=== PATIENT | female | born 1985 | race African-American/Black ===

== ENCOUNTER 2019-01-03 00:13 | Emergency (ER) | payer OTHER ==
[2019-01-03 01:40] VITALS: BP 121/75; PULSE 65; RESP 18; TEMP 98.5
[2019-01-03 01:58] LABS: Appearance,Urine Clear (Clear); Bacteria,Urine Rare /hpf; Bilirubin,Urine Negative (Negative); Blood,Urine Moderate (Negative); Color,Urine Yellow; Glucose,Urine (UA) Negative (Negative); Ketones,Urine Negative (Negative); Leukocyte Esterase,Urine Trace (Negative); Mucus,Urine Many /hpf; Nitrite,Urine Negative (Negative); PH, Urine 6.5 (5.0-8.0); Protein,Urine Trace (Negative); RBC,Urine >182 /hpf (0-5); Specific Gravity,Urine 1.031 (1.001-1.035)
--- NOTE | 2019-01-03 02:00 | ED ---
General Adult HPI - General Chief complaint: Urogenital Stated complaint: Female Time Seen by Provider: 01/03/19 00:29 Source: patient, RN notes reviewed, old records reviewed Mode of arrival: ambulatory Limitations: no limitations - History of Present Illness Initial comments: 33-year-old female patient past medical history of bariatric surgery, gastric sleeve, fibroidectomy presents to ED with complaint of 7 years cyclic pelvic pain. Patient reports that she has prominent intercourse, patient reports that she has pelvic pain before and after her menses. Patient reports that she has been followed closely with [facility] this problem including having a fibroidectomy. Patient reports she hasn't exploratory laparotomy for endometriosis scheduled in approximately 2 weeks. Patient states that she believes that her pain as involving her cervix. Patient was seen at [facility] prior to presentation at this hospital. Patient requests further evaluation of her cervix. Patient hasn't dysuria, patient stated that she is not . Patient denies abdominal pain, patient denies other complaints. Systemic: Pt denies fatigue, myalgia, fever/chills, rash. Pt denies weakness, night sweats, weight loss. Neuro: Pt denies headache, visual disturbances, syncope or pre-syncope. HEENT: Pt denies ocular discharge or irritation, otalgia, rhinorrhea, pharyngitis or notable lymphadenopathy. Cardiopulmonary: Pt denies chest pain, SOB, heart palpitations, dyspnea on exertion. Abdominal/GI: Pt denies abdominal pain, n/v/d. : Pt denies dysuria, burning w/ urination, frequency/urgency. Denies new onset urinary or bowel incontinence. MSK: Pt denies myalgia, loss of strength or function in extremities. Neuro: Pt denies new onset weakness, paresthesias. - Related Data Allergies Allergy/AdvReac Type Severity Reaction Status Date / Time Penicillins Allergy Rash/Hives Verified 01/03/19 00:23 Review of Systems ROS Statement: Those systems with pertinent positive or pertinent negative responses have been documented in the HPI. ROS Other: All systems not noted in ROS Statement are negative. Past Medical History Past Medical History: Asthma History of Any Multi-Drug Resistant Organisms: None Reported Past Surgical History: Bariatric Surgery Additional Past Surgical History / Comment(s): fibroids removed Past Psychological History: No Psychological Hx Reported Smoking Status: Current every day smoker Past Alcohol Use History: None Reported Past Drug Use History: None Reported General Exam - General Exam Comments Initial Comments: Constitutional: NAD, AOX3, Pt has pleasant affect. HEENT: NC/AT, trachea midline, neck supple, no lymphadenopathy. Posterior pharynx non erythematous, without exudates. External ears appear normal, without discharge. Mucous membranes moist. Eyes PERRLA, EOM intact. There is no scleral icterus. No pallor noted. Cardiopulmonary: RRR, no murmurs, rubs or gallops, no JVD noted. Lungs CTAB in anterior and posterior mead. No peripheral edema. Abdominal exam: Abdomen soft and non-distended. Abdomen non-tender to palpation in all 4 quadrants. Bowel sounds active in LLQ. No hepatosplenomegaly. No ecchymosis Neuro: CN II-XII grossly intact. No nuchal rigidity. MSK: No posterior calf tenderness bilaterally, homans sign negative bilaterally. Posterior tibialis and radial pulse +2 bilaterally. Sensation intact in upper and lower extremities. Full active ROM in upper and lower extremities, 5/5 stregnth. Pelvic: Cervix pink, no lesions or ulcerations. No cervical motion tenerness. No pathologic findings. Limitations: no limitations Course Vital Signs 01/03/19 01/03/19 00:16 01:39 Temperature 98.2 F 98.5 F Pulse Rate 74 65 Respiratory 16 18 Rate Blood Pressure 115/76 121/75 O2 Sat by Pulse 97 98 Oximetry Medical Decision Making - Medical Decision Making 33-year-old female patient past medical history of bariatric surgery, gastric sleeve, fibroidectomy presents to ED with complaint of 7 years cyclic pelvic pain. Patient reports that she has prominent intercourse, patient reports that she has pelvic pain before and after her menses. Patient reports that she has been followed closely with [facility] [employer] [facility] this problem including having a fibroidectomy. Patient reports she hasn't exploratory laparotomy for endometriosis scheduled in approximately 2 weeks. Patient states that she believes that her pain as in volving her cervix. Patient was seen at [facility] prior to presentation at this hospital. Patient requests further evaluation of her cervix. Patient hasn't dysuria, patient stated that she is not . Patient denies abdominal pain, patient denies other complaints. Patient vital signs stable, afebrile. Physical exam did not display pathology. Pelvic exam was within normal limits. UA did not display acute pathology. Patient is starting her menses. Patient has established follow-up with [facility] [employer]. Patient to follow up in 1-2 days. Patient to follow up with PCP in 1-2 days. Patient return to ED if new symptoms develop or condition worsens. Case discussed with Dr. Hernandez. - Lab Data Lab Results 01/03/19 01/03/19 Range/Units 01:34 01:34 Urine Color Yellow Urine Appearance Clear (Clear) Urine pH 6.5 (5.0-8.0) Ur Specific [place] 1.031 (1.001-1.035) Urine Protein Trace H (Negative) Urine Glucose (UA) Negative (Negative) Urine Ketones Negative (Negative) Urine Blood Moderate H (Negative) Urine Nitrite Negative (Negative) Urine Bilirubin Negative (Negative) Urine Urobilinogen 3.0 (<2.0) mg/dL Ur Leukocyte Esterase Trace H (Negative) Urine RBC >182 H (0-5) /hpf Urine WBC 6 H (0-5) /hpf Urine Bacteria Rare H (None) /hpf Urine Mucus Many H (None) /hpf Urine HCG, Qual Not Detected (Not Detectd) Disposition Clinical Impression: Pelvic pain Disposition: HOME SELF-CARE Condition: Stable Instructions (If sedation given, give patient instructions): Pelvic Pain in Women (ED) Additional Instructions: Patient to adhere to previously discussed treatment plan and will take medication(s) as directed. Patient to follow up with PCP in 1-2 days. Patient to return to ED if symptoms do not improve. Please follow-up with [facility] and tomorrow. Please follow-up with PCP in 1-2 days. Please return to ER if condition worsens in anyway. Is patient prescribed a controlled substance at d/c from ED?: No Referrals: Olive Edouard MD [Primary Care Provider] - 1-2 days
--- NOTE | 2019-01-03 02:59 | ED ---
Medical Decision Making - Medical Decision Making Pelvic exam chaperoned by Umair Broderick. - Lab Data Lab Results 01/03/19 01/03/19 Range/Units 01:34 01:34 Urine Color Yellow Urine Appearance Clear (Clear) Urine pH 6.5 (5.0-8.0) Ur Specific [place] 1.031 (1.001-1.035) Urine Protein Trace H (Negative) Urine Glucose (UA) Negative (Negative) Urine Ketones Negative (Negative) Urine Blood Moderate H (Negative) Urine Nitrite Negative (Negative) Urine Bilirubin Negative (Negative) Urine Urobilinogen 3.0 (<2.0) mg/dL Ur Leukocyte Esterase Trace H (Negative) Urine RBC >182 H (0-5) /hpf Urine WBC 6 H (0-5) /hpf Urine Bacteria Rare H (None) /hpf Urine Mucus Many H (None) /hpf Urine HCG, Qual Not Detected (Not Detectd) Disposition Clinical Impression: Pelvic pain Disposition: HOME SELF-CARE Condition: Stable Instructions (If sedation given, give patient instructions): Pelvic Pain in Women (ED) Additional Instructions: Patient to adhere to previously discussed treatment plan and will take medication(s) as directed. Patient to follow up with PCP in 1-2 days. Patient to return to ED if symptoms do not improve. Please follow-up with [facility] and tomorrow. Please follow-up with PCP in 1-2 days. Please return to ER if condition worsens in anyway. Is patient prescribed a controlled substance at d/c from ED?: No Referrals: Olive Edouard MD [Primary Care Provider] - 1-2 days
== END 2019-01-03 03:03 | disposition home or self-care (01) ==
LOC: EC 00:13
DX: R10.9 Unspecified abdominal pain (principal); F17.200 Nicotine dependence, unspecified, uncomplicated; Z88.0 Allergy status to penicillin; Z98.84 Bariatric surgery status; Z98.890 Other specified postprocedural states
CPT/HCPCS: 81001; 81025; 99284